=== PATIENT | male | born 1970 | race Caucasian/White ===

== ENCOUNTER 2024-01-10 06:28 | Emergency (ER) | payer OTHER, SELFPAY ==
[2024-01-10 06:31] VITALS: BP 153/124; PULSE 88; RESP 16; TEMP 37.3; O2SAT 95; BMI 26.6
--- NOTE | 2024-01-10 06:38 | XRR_ITS ---
PROCEDURE INFORMATION: Exam: XR Chest Exam date and time: 01/10/2024 6:47 AM Age: 53 years old Clinical indication: Cough TECHNIQUE: Imaging protocol: Radiologic exam of the chest. Views: 1 view. COMPARISON: No relevant prior studies available. FINDINGS: Lungs: Unremarkable. No consolidation. Pleural spaces: Unremarkable. No pleural effusion. No pneumothorax. Heart/Mediastinum: Unremarkable. No cardiomegaly. Bones/joints: Unremarkable. XR/XR chest 1V portable [id number] IMPRESSION: No acute findings.
--- NOTE | 2024-01-10 06:40 | W.ED.GENADLT ---
HPI - General Adult General: Chief complaint: General Medical Stated complaint: covid symptons and back pain Time Seen by Provider: 01/10/24 06:32 Source: patient Mode of arrival: ambulatory Limitations: no limitations History of Present Illness: 53-year-old male states that last 2 days has been having bodyaches low-grade fevers cough congestion headache. He states he believes he may have COVID. He denies any severe shortness of breath denies any vomiting or diarrhea denies any chest pain. Patient also states been having back pain since last April. States that pain is worse with palpation he denies any bowel or bladder incontinence or weakness Associated symptoms: Reports headache(s); Deny chest pain, dyspnea, nausea, rash or vomiting Related Data Previous Rx's Medication Instructions Recorded methocarbamol 750 mg tablet 750 mg PO Q6H PRN spasms #20 tabs 01/10/24 naproxen 500 mg tablet (Naprosyn) 500 mg PO BID PRN pain #20 tabs 01/10/24 Allergies Allergy/AdvReac Type Severity Reaction Status Date / Time No Known Allergies Allergy Verified 01/10/24 06:39 Review of Systems Const: Reports: chills and body aches; Denies: fever(s) or change in appetite ENMT: Reports: throat pain; Denies: dental pain Card: Denies: chest pain Resp: Reports: non-productive cough; Denies: dyspnea GI: Denies: abdominal pain, nausea, vomiting or diarrhea : Denies: dysuria Musc: Reports: back pain; Denies: neck pain Skin/Breast: Denies: rash Neuro: Reports: headache(s) Physical Exam Const: COMMON NORMALS: no acute distress, patient oriented x3 and healthy appearing HENMT: COMMON NORMALS: normocephalic and atraumatic HEAD & SCALP: normocephalic and atraumatic THROAT: posterior oropharynx normal Neck/C-Spine: COMMON NORMALS: full ROM and supple Chest: COMMONS NORMALS: normal inspection of the chest Resp: COMMON NORMALS: normal respiratory effort, No retractions and No use of accessory muscles AUSCULTATION: wheezes Cardio: COMMON NORMALS: regular rate, regular rhythm and No murmurs present (Cardio) RATE: regular rate RHYTHM: regular rhythm Back/Pelvis: OTHER: No midline tenderness has some tenderness over upper thoracic region paraspinal Extremity: COMMON NORMALS: normal to inspection and full ROM Neuro: COMMON NORMALS: patient oriented x3, moves all extremities and no focal motor deficits Psych: COMMON NORMALS: mental status grossly normal, Normal thought process present and cooperative THOUGHT PROCESS: Normal thought process present Skin: COMMON NORMALS: no rashes or lesions noted and no wounds GENERAL SKIN EXAM: no rashes or lesions noted Course Vital Signs: Vital signs: Vital Signs Temperature 99.1 F 01/10/24 06:31 Pulse Rate 78 01/10/24 06:46 Respiratory Rate 16 01/10/24 07:00 Blood Pressure 153/124 01/10/24 06:31 Pulse Oximetry 94 01/10/24 07:00 Oxygen Delivery Me thod Nasal Cannula 01/10/24 07:00 Oxygen Flow Rate 2 01/10/24 07:00 MDM - General Adult Medical Decision Making Patient presents with upper respiratory infection no signs of pneumonia he feels improved here after steroid and breathing treatment pulse ox currently 94% on room air. Been having chronic back pain for almost a year he is no signs of cord compression or epidural abscess we will get him follow-up with Dr. Zaragoza he is to return if worsening he understands agrees to plan Medical Records I reviewed the patient's medical records. Lab Data I reviewed the patient's lab results. Laboratory Results SARS-CoV-2 Ag (Rapid) Negative (Negative) 01/10/24 06:50 XR interpretation done by ED provider, pending radiology final review ED provider radiology interpretation(s): Chest x-ray no acute abnormality Discharge Plan Discharge Patient Disposition: Home Clinical Impression: Upper respiratory infection, Back pain Condition: Stable Prescriptions: New methocarbamol 750 mg tablet 750 mg PO Q6H PRN (Reason: spasms) Qty: 20 0RF Naprosyn 500 mg tablet 500 mg PO BID PRN (Reason: pain) Qty: 20 0RF Discharge Orders: Discharge ED (Routine); Ordered 01/10/24 Ordered By: Francisca Nelson Discharge Diet: Advance as tolerated Discharge Activity: Resume usual activity Patient Instructions: Upper Respiratory Infection (ED), Back Pain (ED) Coding Level of Care Code ED Transcribing Machine Mechanic for Adela Mckeon
[2024-01-10 06:46] VITALS: PULSE 78; RESP 18; O2SAT 95
[2024-01-10] MEDS: dexamethasone 10 mg/mL INJ IM (06:53)
[2024-01-10] MEDS: ketorolac 60 mg/2 mL INJ IM (06:53)
[2024-01-10 07:00] VITALS: RESP 16; O2SAT 94
--- NOTE | 2024-01-10 07:00 | PC.NURSE ---
THIS NURSE ASSUMED CARE AT 0700. PATIENT RESTING IN BED WITH EVEN AND UNLABORED RESPIRATIONS.
[2024-01-10] MEDS: albuterol 8 gm MDI 2 PUFF INHALATION (07:01)
[2024-01-10 07:44] LABS: SARS Covid-2 Antigen Negative (Negative)
[2024-01-10 08:43] VITALS: BP 139/98; PULSE 70; O2SAT 91
--- NOTE | 2024-01-11 07:35 | DCPLANNER ---
messaged ortho for er f/u
== END 2024-01-10 08:44 | disposition home or self-care (01) ==
PROVIDERS: Emergency Provider Emergency Medicine
DX: J06.9 Acute upper respiratory infection, unspecified (principal); M54.9 Dorsalgia, unspecified; Z11.52 Encounter for screening for COVID-19
CPT/HCPCS: 71045; 87426; 94640; 96372; 99284; J1100; J1885; J3535